=== PATIENT | male | born 1955 | race Two or more races ===

== ENCOUNTER 2016-05-30 09:08 | Inpatient (IN) | payer MEDICARE, OTHER ==
[~2016-05-30] VITALS: Ht 170.2 cm; Wt 70.5 kg
[~2016-05-30 09:08] MED LIST: AZAT50TA18; BENA5TAB2; CARB25TA75; CARBIDOPA/LEVOD1 TAB; FURO40TA; GABA-339; GABA600T; HYDROCHLOROTHIAZIDE; ISOS60TA; LEVE100012; METOPROLOL; MIRAPEX; NITROGLYCERINE; PLAQUENAL; PREG100C; RASA1TAB; TOPI200T43; TRIAMTERENE; TRIH2TAB3; ZOLP10TA; [UNRECOGNIZED DRUG - OTHER]
[2016-05-30] MEDS ORDERED: SODIUM CHLORIDE 0.9% 1,000 ML IVB ONE (09:41)
[2016-05-30 09:42] LABS: Basophils # (auto) 0.1 uL; Eosinophils # (auto) 0.2 uL; Eosinophils % (auto) 2.2 % (0.0-7.0); Hematocrit 49.1 % (41.0-53.0); Hemoglobin 16.3 g/dL (13.5-17.5); Lymphocytes # (auto) 0.9 uL; Lymphocytes % (auto) 9.3 % (10.0-50.0); Mean Corpuscular Hemoglobin 31.7 pg (28.0-32.0); Mean Corpuscular Hgb Conc. 33.1 g/dL (32.0-36.0); Mean Corpuscular Volume 95.7 fL (80.0-100.0); Mean Platelet Volume 8.3 fL (7.4-10.4); Monocytes # (auto) 0.7 uL; Monocytes % (auto) 7.3 % (0.0-12.0); Neutrophils # (auto) 8.2 uL; Neutrophils % (auto) 80.2 % (37.0-80.0); Platelet Count (auto) 266 10^3/uL (140-450); Red Cell Distribution Width 13.2 % (11.6-16.0); White Blood Cell 10.2 10^3/uL (4.4-10.8)
[2016-05-30] MEDS ORDERED: KETOROLAC TROMETH 30 MG/ML 1ML VIAL IM ONE (09:45)
[2016-05-30] MEDS ORDERED: ONDANSETRON HCL 4 MG/2 ML VIAL IV ONE (09:45)
[2016-05-30] MEDS ORDERED: HYDROmorphone HCL 2 MG/ML VL IV ONE ×3 (09:45→18:00)
[2016-05-30 10:08] LABS: Albumin 4.2 g/dL (3.4-5.0); BUN/Creatinine Ratio 10.2; Bilirubin, Total 0.5 mg/dL (0.2-1.0); Calcium 8.7 mg/dL (8.5-10.1); Magnesium 2.3 mg/dL (1.6-2.6); Total Protein 7.6 g/dL (6.4-8.2)
[2016-05-30 11:34] LABS: Urine Bilirubin Negative (Negative); Urine Blood Negative /uL (Negative); Urine Color Yellow (Yellow); Urine Glucose Normal (Normal); Urine Ketone Negative (Negative); Urine Nitrite Negative (Negative); Urine RBC 2 /hpf (0 - 3); Urine Urobilinogen Normal (Negative); Urine pH 7.5 (5.0-8.0)
[2016-05-30] MEDS ORDERED: HYDROcodone-ACET 5/325MG TAB PO PRN ×3 (16:15→18:33)
[2016-05-30] MEDS: SODIUM CHLORIDE 0.9% 1,000 ML IV SCH (16:17)
[2016-05-30] MEDS ORDERED: CLOPIDOGREL BISULFATE 75 MG TAB PO ONE (16:45)
[2016-05-30] MEDS ORDERED: METOPROLOL TARTRATE 25 MG TAB PO ONE (16:45)
[2016-05-30] MEDS ORDERED: ASPirin 81 mg TAB PO ONE (16:45)
[2016-05-30] MEDS ORDERED: azaTHIOprine 50 MG TAB PO ONE (16:45)
[2016-05-30] MEDS ORDERED: BENAZEPRIL HCL 10 MG TAB PO ONE (16:45)
[2016-05-30] MEDS ORDERED: ISOSORBIDE MONONITRATE 60 MG TAB PO ONE (16:45)
[2016-05-30] MEDS ORDERED: HYDROXYCHLOROQUINE SULFATE 200 MG TAB PO ONE (16:45)
[2016-05-30] MEDS: TAMSULOSIN HYDROCHLORIDE 0.4 MG CAP PO SCH (16:54)
[2016-05-30] MEDS: MORPHINE SULF INJ 2 MG/ML SYRINGE 1ML IV PRN (17:40)
[2016-05-30] MEDS: KETOROLAC TROMETH 30 MG/ML 1ML VIAL IV PRN (19:23)
[2016-05-30] MEDS: ONDANSETRON HCL 4 MG/2 ML VIAL IV PRN (19:29)
[2016-05-30 20:03] VITALS: BP 150/91
[2016-05-30] MEDS ORDERED: MANNITOL FTV 25% 12.5 GM/50 ML 50 ML IV ONE (20:30)
[2016-05-30] MEDS: HYDROXYCHLOROQUINE SULFATE 200 MG TAB PO SCH (21:58)
[2016-05-30] MEDS: METOPROLOL TARTRATE 25 MG TAB PO SCH (21:58)
[2016-05-30 22:00] VITALS: BP 127/69
[2016-05-30 23:31] VITALS: BP 127/69
[2016-05-31] MEDS: MORPHINE SULF INJ 2 MG/ML SYRINGE 1ML IV PRN ×2 (00:19→10:49)
[2016-05-31] MEDS ORDERED: BENA10TA3 PO (00:42)
[2016-05-31] MEDS ORDERED: ROSU10TA16 PO (00:42)
[2016-05-31] MEDS ORDERED: CLOP75TA28 PO (00:42)
[2016-05-31] MEDS ORDERED: CARV25TA PO (00:42)
[2016-05-31] MEDS: SODIUM CHLORIDE 0.9% 1,000 ML IV SCH ×3 (02:27→21:35)
[2016-05-31] MEDS: KETOROLAC TROMETH 30 MG/ML 1ML VIAL IV PRN ×3 (04:17→21:44)
[2016-05-31 05:26] VITALS: BP 146/73
[2016-05-31 06:24] LABS: BUN/Creatinine Ratio 11.8; Potassium 4.3 mmol/L (3.5-5.1)
[2016-05-31 06:43] LABS: Basophils # (auto) 0.1 uL; Basophils % (auto) 0.9 % (0.0-2.0); Eosinophils # (auto) 0.2 uL; Eosinophils % (auto) 2.3 % (0.0-7.0); Hematocrit 40.9 % (41.0-53.0); Lymphocytes # (auto) 1.4 uL; Lymphocytes % (auto) 18.8 % (10.0-50.0); Mean Corpuscular Hemoglobin 33.3 pg (28.0-32.0); Mean Corpuscular Hgb Conc. 34.3 g/dL (32.0-36.0); Mean Platelet Volume 8.6 fL (7.4-10.4); Monocytes # (auto) 0.7 uL; Monocytes % (auto) 9.5 % (0.0-12.0); Neutrophils % (auto) 68.5 % (37.0-80.0); Platelet Count (auto) 170 10^3/uL (140-450); Red Cell Distribution Width 12.4 % (11.6-16.0); White Blood Cell 7.4 10^3/uL (4.4-10.8)
[2016-05-31 07:30] VITALS: BP 133/75
[2016-05-31 08:06] LABS: INR 0.98 (0.9-1.15); Partial Thromboplastin Time 26.8 sec (22.64-33.71); Prothrombin Time 10.1 sec (9.37-12.3)
[2016-05-31] MEDS: azaTHIOprine 50 MG TAB PO SCH (10:00)
[2016-05-31] MEDS: ASPirin 81 mg TAB PO SCH (10:00)
[2016-05-31] MEDS: ISOSORBIDE MONONITRATE 60 MG TAB PO SCH (10:00)
[2016-05-31] MEDS: HYDROXYCHLOROQUINE SULFATE 200 MG TAB PO SCH ×2 (10:00→21:34)
[2016-05-31] MEDS: CLOPIDOGREL BISULFATE 75 MG TAB PO SCH (10:00)
[2016-05-31] MEDS: METOPROLOL TARTRATE 25 MG TAB PO SCH ×2 (10:00→21:34)
[2016-05-31] MEDS: BENAZEPRIL HCL 10 MG TAB PO SCH (10:00)
[2016-05-31 12:55] VITALS: BP 163/94
[2016-05-31] MEDS: ONDANSETRON HCL 4 MG/2 ML VIAL IV PRN ×2 (14:41→18:15)
[2016-05-31] MEDS: MORPHINE SULFATE 4 MG/ML SYRG IV PRN (14:45)
[2016-05-31] MEDS: TAMSULOSIN HYDROCHLORIDE 0.4 MG CAP PO SCH (18:16)
[2016-05-31 22:00] VITALS: BP 123/73
[2016-06-01 05:25] VITALS: BP 122/79
[2016-06-01] MEDS: SODIUM CHLORIDE 0.9% 1,000 ML IV SCH ×2 (08:15→18:41)
[2016-06-01 09:00] VITALS: BP 155/88
[2016-06-01] MEDS: ISOSORBIDE MONONITRATE 60 MG TAB PO SCH (10:00)
[2016-06-01] MEDS: HYDROXYCHLOROQUINE SULFATE 200 MG TAB PO SCH (10:00)
[2016-06-01] MEDS: CLOPIDOGREL BISULFATE 75 MG TAB PO SCH (10:00)
[2016-06-01] MEDS: azaTHIOprine 50 MG TAB PO SCH (10:00)
[2016-06-01] MEDS: ASPirin 81 mg TAB PO SCH (10:00)
[2016-06-01] MEDS: MORPHINE SULFATE 4 MG/ML SYRG IV PRN ×2 (11:21→17:46)
[2016-06-01] MEDS: ONDANSETRON HCL 4 MG/2 ML VIAL IV PRN ×2 (11:22→17:47)
[2016-06-01] MEDS: BENAZEPRIL HCL 10 MG TAB PO SCH (11:24)
[2016-06-01] MEDS: METOPROLOL TARTRATE 25 MG TAB PO SCH (11:24)
[2016-06-01 13:00] VITALS: BP 185/106
[2016-06-01 16:00] VITALS: BP 151/95
[2016-06-01] MEDS: TAMSULOSIN HYDROCHLORIDE 0.4 MG CAP PO SCH (17:51)
[2016-06-01 18:08] VITALS: BP 122/79
== END 2016-06-01 19:00 | disposition home or self-care (01) | DRG 694 ==
LOC: ER 09:13 → OVERFLOW 09:14 → CENTRAL 19:43
PROVIDERS: ADMIT Internal Medicine; ATTEND Internal Medicine Pulmonary Disease
DX: N13.2 Hydronephrosis with renal and ureteral calculous obstruction (principal); G40.909 Epilepsy, unspecified, not intractable, without status epilepticus; I10 Essential (primary) hypertension; I25.10 Atherosclerotic heart disease of native coronary artery without angina pectoris; M19.90 Unspecified osteoarthritis, unspecified site; M32.9 Systemic lupus erythematosus, unspecified; Z86.73 Personal history of transient ischemic attack (TIA), and cerebral infarction without residual deficits; Z87.442 Personal history of urinary calculi; Z95.0 Presence of cardiac pacemaker; Z95.5 Presence of coronary angioplasty implant and graft
CPT/HCPCS: 36415; 71010; 74176; 80048; 80053; 81001; 83735; 84484; 85025; 85610; 85730; 94761; 96361; 96372; 96374; 96375; 96376; J1885; J2405